=== PATIENT | female | born 1955 | race African-American/Black ===

== ENCOUNTER 2017-09-12 08:00 | Outpatient (CLI) | payer SELFPAY | END 2017-09-12 08:01 | disposition home or self-care (01) | LOC: BICMAMMO 08:00 | PROVIDERS: ATTEND Physician Assistant | DX: Z12.31 Encounter for screening mammogram for malignant neoplasm of breast (principal) | CPT/HCPCS: 77063; 77067; G0202 ==

== ENCOUNTER 2018-07-23 10:12 | Outpatient (CLI) | payer MEDICARE, MEDICAID ==
[2018-07-23 11:57] LABS: #Basophils 0.1 thou/uL (0.0-0.2); #Eosinphils 0.1 thou/uL (0.0-0.7); #Lymphocytes 2.8 thou/uL (1.20-3.40); #Monocytes 0.4 thou/uL (0.11-0.59); #Neutrophils 3.3 thou/uL (1.40-6.50); %Basophils 1.5 % (0.0-1.0); %Eosinophils 1.5 % (0.0-10.0); %Lymphocytes 41.6 % (21.0-51.0); %Neutrophils 49.5 % (42.0-75.0); Hemoglobin 13.9 g/dL (12.0-16.0); Mean Corpuscular HGB CONC 32.4 g/dL (32.0-36.0); Mean Corpuscular Hemoglobin 26.8 pg (27.0-31.0); Mean Corpuscular Volume 82.9 fL (78.0-98.0); Mean Platelet Volume 8.8 fL (7.4-10.4); Platelet Count 309 thou/uL (130-400); RBC Distribution Width 12.6 % (11.5-14.5); Red Blood Cell (RBC) Count 5.19 mill/uL (4.20-5.40); White Blood Cell (WBC) Count 6.7 thou/uL (4.8-10.8)
--- NOTE | 2018-07-23 12:01 | RAD ---
CHEST TWO VIEWS: HISTORY: Chest pain. COMPARISON: None. FINDINGS: The lungs are clear. No pneumothorax or effusion. The cardiac silhouette and mediastinal contour ar e within normal limits. Multiple midline sternotomy wires. IMPRESSION: No acute intrathoracic abnormality. POS: [facility]
[2018-07-23 12:16] LABS: Bilirubin Negative (Negative); Blood, Urine Negative (Negative); Clarity CLEAR (Clear); Glucose, Urine (Dipstick) >=1000 mg/dL (Negative); Leukocyte Negative (Negative); Nitrite Negative (Negative); Protein, Urine (Dipstick) Negative (Neg-Trace); Specific Gravity, Urine 1.039 (1.002-1.036); Urobilinogen 0.2 mg/dL (0.2-1.0)
[2018-07-23 12:18] LABS: Bacteria/HPF Rare-Few HPF (None Seen); Hyaline Casts/LPF 0-3 HYALINE CAST LPF (0-3 Hyaline); Pathc Cast-AUWi Flag 0.29 (0-2.49); Squamous Epithelial 0-3 HPF (0-3); WBC/HPF 0-3 HPF (0-3)
[2018-07-23 12:53] LABS: Anion Gap 11 mmol/L (10-20); BUN (Urea Nitrogen) 15 mg/dL (9.8-20.1); Calc. Creatinine Clearance 0 mL/min (70-130); Calcium 10.2 mg/dL (7.8-10.44); Carbon Dioxide 28 mmol/L (23-31); Chloride 101 mmol/L (98-107); Estimated GFR-MDRD 90; Glucose 258 mg/dL (80-115); Potassium 3.9 mmol/L (3.5-5.1); Sodium 136 mmol/L (136-145)
== END 2018-07-23 10:13 | disposition home or self-care (01) ==
LOC: LABBT 10:12
PROVIDERS: ATTEND Orthopaedic Surgery Hand Surgery
DX: Z01.818 Encounter for other preprocedural examination (principal); M67.40 Ganglion, unspecified site
CPT/HCPCS: 71046; 80048; 81001; 85025; 93005; 93010

== ENCOUNTER 2018-08-05 05:34 | Day surgery (SDC) | payer MEDICARE, MEDICAID ==
[2018-07-23 10:19] VITALS: BMI 25.0
[2018-08-05] MEDS ORDERED: CEFAZOLIN 2 GM/50 ML BAG ONE (06:16)
[2018-08-05] MEDS ORDERED: Famotidine/PF 20 mg/2ml Vial ONE (06:41)
[2018-08-05] MEDS ORDERED: Fentanyl 100 MCG/2 ML VIAL ONE (06:41)
[2018-08-05] MEDS ORDERED: Betamet Acet/Betamet Na Ph 30 MG/5 ML VIAL ONE (06:45)
[2018-08-05] MEDS ORDERED: Bacitracin Zinc Ointment 30 gm TUBE ONE (06:45)
[2018-08-05] MEDS ORDERED: Bupivacaine PF 0.5% 30 ML VIAL ONE (06:45)
[2018-08-05] MEDS ORDERED: Propofol 1,000 MG/100 ML VIAL IV ONE (07:04)
[2018-08-05] MEDS ORDERED: Midazolam HCl 2 mg/2 ml Vial ONE (07:46)
[2018-08-05] MEDS ORDERED: Lidocaine 1% PF 5 ML VIAL ONE (13:59)
[2018-08-05] MEDS ORDERED: Ondansetron PF 4 MG/2 ML Vial ONE (13:59)
[2018-08-05] MEDS ORDERED: PROPOFOL 200 MG/20 ML VIAL ONE (13:59)
[2018-08-05] MEDS ORDERED: Ketorolac Tromethamine 30 MG/ML VIAL ONE (13:59)
--- NOTE | 2018-08-06 13:51 | OP ---
DATE OF PROCEDURE: 08/05/2018 PREOPERATIVE DIAGNOSIS: Left wrist radial carpal palmar ganglion. POSTOPERATIVE DIAGNOSIS: Left wrist radial carpal palmar ganglion. FINDINGS: A 3.5 cm ganglion with 4 mm stalk scaphoradial joint, radial artery, radial to the mass, b ut grossly adherent to the wall. PROCEDURES PERFORMED: 1. Arthrotomy with palmar ganglion cyst resection. 2. Ligation of bleeder, radial artery branch, left wrist. SPECIMEN SENT: Left wrist ganglion . TOURNIQUET TIME: 18 minutes. INJECTIONS: Steroid injection to the joint, betamethasone 3 mL. INDICATION: The patient with a mass, jorgensen over radial artery and felt that aspiration would be too dangerous to arterial flow, so we elected to go to surgery after conservative treatment had failed. DESCRIPTION OF PROCEDURE: After successful general LMA technique, the limb was prepped and draped. Time out was done appropriately. We then outlined a zigzag incision, staying well radial of the flex or carpi radialis to avoid the palmar cutaneous branch and also centralize over the mass. With limb exsanguinated, tourniquet inflated to 250 mmHg pressure. We had to zigzag incision after given 20 mL of 0.5% Marcaine along the incision line. The cyst was very thin-walled and once we dissected, some of the portion against the wall, away from the wall, freeing it off the flexor carpi radialis tendon and the radial artery proximally, we then had to under magnification free the radial artery from the cyst. Often taking care not to violate wall, but in the hand, the wall was violated and had to hold this with a mini clamp. We then found the stalk, which was almost 4 mm in width coming from the rad ioscaphoid joint, into the joint cavity at the distal radius portion and followed it into the joint w here it was initiated more than likely. The ganglion was now gone, respective joint, small amount of synovium was removed. We then had Mya tone placed 2 mL of the joint, release of tourniquet and we ligated arterial bleeder that was a branc h of radial artery. The patient then had the hemostasis obtained, the wound closed after placing 2 m L of Celestone into the cavity, centrally. The incision was closed with a running 4-0 Monocryl in an interrupted 4-0 nylon.
== END 2018-08-05 10:00 | disposition home or self-care (01) ==
LOC: SDC 05:34
PROVIDERS: ATTEND Orthopaedic Surgery Hand Surgery
PROC: 0LB60ZZ Excision of Left Lower Arm and Wrist Tendon, Open Approach (ICD-10-PCS; principal; 2018-08-05)
DX: M67.432 Ganglion, left wrist (principal); I25.2 Old myocardial infarction; Z79.4 Long term (current) use of insulin; Z79.82 Long term (current) use of aspirin; Z79.899 Other long term (current) drug therapy; Z95.1 Presence of aortocoronary bypass graft
CPT/HCPCS: 36416; 88304; J0131; J0702; J1885; J2001; J2250; J2405; J2704; J3010; S0020; S0028

== ENCOUNTER 2018-08-20 07:58 | Outpatient (CLI) | payer MEDICARE, MEDICAID | END 2018-08-20 07:59 | disposition home or self-care (01) | LOC: BICMAMMO 07:58 | PROVIDERS: ATTEND Physician Assistant | DX: N64.4 Mastodynia (principal) | CPT/HCPCS: 77066; G0279 ==

== ENCOUNTER 2018-09-10 09:48 | Outpatient (CLI) | payer MEDICARE, MEDICAID ==
[2018-09-10 11:05] LABS: Estimated GFR-MDRD - POC Greater than 90
--- NOTE | 2018-09-10 12:52 | MRI ---
MRI ABDOMEN WITH AND WITHOUT CONTRAST: HISTORY: Hypodensity seen in the pancreas on prior CT. Followup to determine stability. COMPARISON: CT abdomen/pelvis from 02/06/2018. TECHNIQUE: Multiplanar, multisequence MR images were obtained of the abdomen with and without IV contrast. FINDINGS: There is a stable, well circumscribed, 8 to 9 mm, nonenhancing focus of high T2 signal on the insular portion of the pancreas. This is not obviously communicating with the pancreatic duct. This may re present a small cyst. No enhancement is seen surrounding this abnormality to suggest a cystic pancre atic neoplasm. The common bile duct is normal in caliber. The liver, gallbladder, kidneys, adrenal glands, and spleen are unremarkable. No abdominal adenopath y is seen. No marrow signal abnormality is present. IMPRESSION: Stable cyst in the insular portion of the pancreas. POS: EB
== END 2018-09-10 09:49 | disposition home or self-care (01) ==
LOC: MRI 09:48
PROVIDERS: ATTEND Physician Assistant
DX: Z09 Encounter for follow-up examination after completed treatment for conditions other than malignant neoplasm (principal); K86.2 Cyst of pancreas; Z87.19 Personal history of other diseases of the digestive system
CPT/HCPCS: 74183; 82565

== ENCOUNTER 2018-09-25 05:32 | Day surgery (SDC) | payer MEDICARE, MEDICAID ==
[2018-09-25 06:46] LABS: #Basophils 0.1 thou/uL (0.0-0.2); #Eosinphils 0.2 thou/uL (0.0-0.7); #Lymphocytes 3.3 thou/uL (1.20-3.40); #Monocytes 0.5 thou/uL (0.11-0.59); #Neutrophils 3.3 thou/uL (1.40-6.50); %Basophils 0.8 % (0.0-1.0); %Eosinophils 2.1 % (0.0-10.0); %Lymphocytes 45.4 % (21.0-51.0); %Monocytes 6.7 % (0.0-10.0); Hemoglobin 13.2 g/dL (12.0-16.0); Mean Corpuscular HGB CONC 32.7 g/dL (32.0-36.0); Mean Corpuscular Hemoglobin 26.9 pg (27.0-31.0); Mean Corpuscular Volume 82.1 fL (78.0-98.0); Mean Platelet Volume 8.8 fL (7.4-10.4); Platelet Count 303 thou/uL (130-400); RBC Distribution Width 13.1 % (11.5-14.5); Red Blood Cell (RBC) Count 4.93 mill/uL (4.20-5.40); White Blood Cell (WBC) Count 7.2 thou/uL (4.8-10.8)
[2018-09-25 06:53] LABS: INR-International Normal Ratio 0.9; PTT 27.6 SEC (22.9-36.1); Prothrombin Time 12.5 SEC (12.0-14.7)
[2018-09-25 07:00] LABS: Anion Gap 15 mmol/L (10-20); BUN (Urea Nitrogen) 19 mg/dL (9.8-20.1); Calc. Creatinine Clearance 0 mL/min (70-130); Carbon Dioxide 25 mmol/L (23-31); Chloride 103 mmol/L (98-107); Estimated GFR-MDRD 71; Potassium 3.8 mmol/L (3.5-5.1); Sodium 139 mmol/L (136-145)
[2018-09-25 07:01] LABS: ALT (SGPT) 20 U/L (8-55); AST (SGOT) 14 U/L (5-34); Albumin 4.3 g/dL (3.4-4.8); Alkaline Phosphatase 131 U/L (40-150); Bilirubin, Total 0.4 mg/dL (0.2-1.2); Calcium 10.8 mg/dL (7.8-10.44); Cardiac Risk 4.8 (Less than 4.5); Cholesterol 220 mg/dl (< 200 Desired); Globulin 3.6 g/dL (2.4-3.5); Glucose 272 mg/dL (80-115); HDL Cholesterol 46 mg/dL (>60 Neg Risk); LDL Cholesterol, Calculated 124 mg/dL; Protein, Total 7.9 g/dL (6.0-8.3); Triglycerides 250 mg/dL (Less than 150)
[2018-09-25] MEDS ORDERED: Fentanyl 100 MCG/2 ML VIAL ONE (09:09)
[2018-09-25] MEDS ORDERED: Midazolam HCl 2 mg/2 ml Vial ONE (09:09)
[2018-09-25] MEDS ORDERED: Acetaminophen/Codeine 30-300mg Tablet ONE (11:46)
== END 2018-09-25 12:40 | disposition home or self-care (01) ==
LOC: CCL 05:32
PROVIDERS: ATTEND Internal Medicine Cardiovascular Disease
PROC: B213YZZ Fluoroscopy of Multiple Coronary Artery Bypass Grafts using Other Contrast (ICD-10-PCS; principal; 2018-09-25)
PROC: B211YZZ Fluoroscopy of Multiple Coronary Arteries using Other Contrast (ICD-10-PCS; 2018-09-25)
DX: I25.10 Atherosclerotic heart disease of native coronary artery without angina pectoris (principal); I25.2 Old myocardial infarction; Z95.1 Presence of aortocoronary bypass graft; E78.00 Pure hypercholesterolemia, unspecified; I10 Essential (primary) hypertension; E11.9 Type 2 diabetes mellitus without complications
CPT/HCPCS: 80053; 80061; 85025; 85610; 85730; 93459; 99152; 99153; C1769; J1644; J2250; J3010

== ENCOUNTER 2019-03-25 14:04 | Outpatient (CLI) | payer MEDICARE, MEDICAID ==
[2019-03-25 15:12] LABS: #Basophils 0.1 thou/uL (0.0-0.2); #Eosinphils 0.1 thou/uL (0.0-0.7); #Monocytes 0.5 thou/uL (0.11-0.59); #Neutrophils 2.7 thou/uL (1.40-6.50); %Basophils 1.4 % (0.0-1.0); %Eosinophils 1.7 % (0.0-10.0); %Lymphocytes 46.7 % (21.0-51.0); %Monocytes 7.2 % (0.0-10.0); Hemoglobin 13.4 g/dL (12.0-16.0); Mean Corpuscular HGB CONC 32.9 g/dL (32.0-36.0); Mean Corpuscular Hemoglobin 27.5 pg (27.0-31.0); Mean Corpuscular Volume 83.6 fL (78.0-98.0); Platelet Count 287 thou/uL (130-400); Red Blood Cell (RBC) Count 4.86 mill/uL (4.20-5.40); White Blood Cell (WBC) Count 6.3 thou/uL (4.8-10.8)
[2019-03-25 15:34] LABS: Anion Gap 13 mmol/L (10-20); BUN (Urea Nitrogen) 14 mg/dL (9.8-20.1); Calc. Creatinine Clearance 0 mL/min (70-130); Calcium 10.5 mg/dL (7.8-10.44); Carbon Dioxide 25 mmol/L (23-31); Chloride 103 mmol/L (98-107); Estimated GFR-MDRD 87; Glucose 289 mg/dL (80-115); Potassium 4.7 mmol/L (3.5-5.1); Sodium 136 mmol/L (136-145)
== END 2019-03-25 14:05 | disposition home or self-care (01) ==
LOC: LABBT 14:04
PROVIDERS: ATTEND Orthopaedic Surgery Hand Surgery
DX: Z01.818 Encounter for other preprocedural examination (principal); M65.4 Radial styloid tenosynovitis [de Quervain]
CPT/HCPCS: 80048; 85025; 93005; 93010

== ENCOUNTER 2019-03-27 05:49 | Day surgery (SDC) | payer MEDICARE, MEDICAID ==
[2019-03-25 14:20] VITALS: BMI 25.7
[2019-03-27] MEDS ORDERED: Betamet Acet/Betamet Na Ph 30 MG/5 ML VIAL ONE (06:28)
[2019-03-27] MEDS ORDERED: Bupivacaine PF 0.5% 30 ML VIAL ONE (06:28)
[2019-03-27] MEDS ORDERED: Insulin Regular 300 UNITS/3 ML VIAL ONE (07:05)
[2019-03-27] MEDS ORDERED: Fentanyl 100 MCG/2 ML VIAL ONE (07:27)
[2019-03-27] MEDS ORDERED: Bacitracin Zinc Ointment 30 gm TUBE ONE (07:53)
[2019-03-27] MEDS ORDERED: Ketorolac Tromethamine 30 MG/ML VIAL ONE (08:34)
--- NOTE | 2019-03-27 14:45 | OP ---
DATE OF PROCEDURE: 03/27/2019 PREOPERATIVE DIAGNOSES: 1. Left de Quervain's. 2. Insulin-dependent diabetes mellitus. POSTOPERATIVE DIAGNOSES: 1. Left de Quervain's. 2. Insulin-dependent diabetes mellitus. 3. Extensor tenosynovitis. PROCEDURES PERFORMED: 1. De Quervain's first dorsal compartment release, left. 2. Left extensor tenosynovectomy first dorsal compartment, all within one compartment. SPECIMENS: None to the lab, but removed tenosynovium. ESTIMATED BLOOD LOSS: 10 mL. TOURNIQUET TIME: 10 minutes. DESCRIPTION OF PROCEDURE: After successful general LMA technique, the limb was prepped and draped. We gave injection of 10 mL of 0.5% Marcaine. An outline zigzag incision was centered over the dorsal compartment and the radial styloid. We then exsanguinated the limb, inflated the tourniquet to 250 mmHg pressure at the end of the incision. We carried through skin and subcutaneous tissue until we identified superficial radial nerve branches. We dissected them free in atraumatic fashion from the center of the field, visualized a very thick tenosynovium on both sides of the extensor retinaculum. We released the retinaculum under direct visualization with a knife leaving a palmar 50% to prevent subluxation. I then elevated the tendons, found the EPB using a separate compartment and released it. There was a very thick tenosynovium for approximately 1 cm and the thin one was still inflamed. We did a radical extensor tenosynovectomy to remove this protecting all nervous structures. The patient then had tourniquet deflated. Hemostasis was obtained. An incision was closed with interrupted 4-0 nylon in simple pattern. Bulky dressing was applied. She went to the operating room without complication. Job ID: [id number]
== END 2019-03-27 09:40 | disposition home or self-care (01) ==
LOC: SDC 05:49
PROVIDERS: ATTEND Orthopaedic Surgery Hand Surgery
PROC: 0LB60ZZ Excision of Left Lower Arm and Wrist Tendon, Open Approach (ICD-10-PCS; principal; 2019-03-27)
DX: M65.4 Radial styloid tenosynovitis [de Quervain] (principal); M67.40 Ganglion, unspecified site; I10 Essential (primary) hypertension; I25.10 Atherosclerotic heart disease of native coronary artery without angina pectoris; E11.9 Type 2 diabetes mellitus without complications; F17.200 Nicotine dependence, unspecified, uncomplicated; I25.2 Old myocardial infarction; Z79.4 Long term (current) use of insulin; Z79.82 Long term (current) use of aspirin; Z79.899 Other long term (current) drug therapy
CPT/HCPCS: 36416; J0690; J0702; J1815; J1885; J3010; S0020

== ENCOUNTER 2019-08-21 09:39 | Outpatient (CLI) | payer MEDICARE, MEDICAID ==
--- NOTE | 2019-08-21 10:49 | MMO ---
Bilateral MAMMO Bilat Diag [facility]. CLINICAL HISTORY: Patient is 64 years old and is seen for diagnostic exam. The patient has no family history of breast cancer. The patient has no personal history of cancer. VIEWS: The views performed were: bilateral mediolateral oblique with tomosynthesis; bilateral craniocaudal with tomosynthesis; bilateral mediolateral with tomosynthesis; right mediolateral oblique spot compression magnification; and right craniocaudal spot compression magnification. FILMS COMPARED: The present examination has been compared to prior imaging studies performed at [facility] on 07/25/2016, 09/12/2017, 08/20/2018 and 08/21/2019. This study has been interpreted with the assistance of computer-aided detection. MAMMOGRAM FINDINGS: There are scattered fibroglandular densities. Finding 1: No suspicious mammographic abnormality seen in the palpable region of interest. No sonographic abnormality is seen in the region of palpable abnormality. Finding 2: There are fine pleomorphic calcifications with grouped or clustered distribution seen in the posterior region of the right breast at 10 o'clock. There is an increased number of calcifications. The findings and recommendations were discussed with the patient prior to her leaving the Center. Finding 3: There are fine pleomorphic calcifications seen in the middle region of the right breast at 12 o'clock. There is an increased number of calcifications. In the left breast, there are no suspicious masses, calcifications or areas of architectural distortion. IMPRESSION: FINDING 1: FINDING IN THE RIGHT BREAST IS BENIGN. FINDING 2: FINE PLEOMORPHIC CALCIFICATIONS IN THE POSTERIOR REGION OF THE RIGHT BREAST AT 10 O'CLOCK ARE SUSPICIOUS. A STEREOTACTIC BREAST BIOPSY IS RECOMMENDED. PATIENT IS CURRENTLY ON BLOOD THINNERS FOR PRIOR CORONARY ARTERY DISEASE AND PERIPHERAL VASCULAR DISEASE. SHE WILL NEED TO BE OFF THESE FOR THE STEREOTACTIC BIOPSY. PATIENT COUNSELLED ON THE FINDINGS PRIOR TO LEAVING THE BREAST CENTER. FINDING 3: FINE PLEOMORPHIC CALCIFICATIONS IN THE MIDDLE REGION OF THE RIGHT BREAST AT 12 O'CLOCK ARE SUSPICIOUS. A STEREOTACTIC BREAST BIOPSY IS RECOMMENDED. THE RESULTS OF THIS EXAM WERE SENT TO THE PATIENT. ACR BI-RADS Category 4 - Suspicious abnormality - biopsy should be considered MAMMOGRAPHY NOTE: 1. A negative mammogram report should not delay a biopsy if a dominant of clinically suspicious mass is present. 2. Approximately 10% to 15% of breast cancers are not detected by mammography. 3. Adenosis and dense breasts may obscure an underlying neoplasm. Reported by: REYES GAXIOLA MD Electonically Signed: [id number]
--- NOTE | 2019-08-21 11:48 | ULT ---
RIGHT BREAST DIAGNOSTIC ULTRASOUND: Date: 08/21/19 INDICATION: Palpable abnormality right breast 12 o'clock position. COMPARISON: Mammographic evaluation of 08/21/19. FINDINGS: No suspicious sonographic abnormality is seen within the palpable region of interest. IMPRESSION: No suspicious sonographic abnormality within the palpable region of interest. POS: OFF
== END 2019-08-21 09:40 | disposition home or self-care (01) ==
LOC: BICMAMMO 09:39
PROVIDERS: ATTEND Physician Assistant
DX: N64.4 Mastodynia (principal)
CPT/HCPCS: 76642; 77066; G0279

== ENCOUNTER 2020-03-09 10:09 | Outpatient (CLI) | payer MEDICARE, MEDICAID ==
--- NOTE | 2020-03-09 14:38 | MRI ---
EXAM: RIGHT SHOULDER MRI WITHOUT IV CONTRAST: 03/09/20 HISTORY: Acute pain right shoulder. FINDINGS: There is a prominent amount of fluid within the subacromial subdeltoid bursa. AC joint arthrosis nani nges are noted with prominent downsloping of the lateral acromion. There is a full thickness essentia lly nonretracted tear of the conjoint tendon with some associated delamination extending into the inf raspinatus tendon myotendinous region. Supraspinatus tendinopathy. Rotator cuff muscles are within n ormal limits of signal and volume. The visualized labrum appears unremarkable. Subscapularis tendon a nd biceps tendons appear intact. IMPRESSION: Complete full thickness essentially nonretracted tear of the conjoint tendon. Large amount of fluid w ithin the subacromial subdeltoid bursa. Downsloping of the lateral acromion. Other findings as above. POS: [facility]
== END 2020-03-09 10:10 | disposition home or self-care (01) ==
LOC: BICMRI 10:09
PROVIDERS: ATTEND Orthopaedic Surgery
DX: M25.511 Pain in right shoulder (principal); M75.31 Calcific tendinitis of right shoulder; S46.911A Strain of unspecified muscle, fascia and tendon at shoulder and upper arm level, right arm, initial encounter; M19.011 Primary osteoarthritis, right shoulder

== ENCOUNTER 2020-04-11 05:55 | Outpatient (CLI) | payer MEDICARE, MEDICAID, OTHER ==
[2020-04-11 16:17] LABS: INR-International Normal Ratio 0.9; Prothrombin Time 12.4 sec (12.0-14.7)
[2020-04-11 16:19] LABS: #Eosinphils 0.1 thou/uL (0.0-0.7); #Lymphocytes 3.1 thou/uL (1.20-3.40); #Monocytes 0.4 thou/uL (0.11-0.59); #Neutrophils 3.1 thou/uL (1.40-6.50); %Basophils 0.7 % (0.0-1.0); %Eosinophils 1.2 % (0.0-10.0); %Lymphocytes 45.9 % (21.0-51.0); %Monocytes 6.1 % (0.0-10.0); %Neutrophils 46.1 % (42.0-75.0); Hemoglobin 13.5 g/dL (12.0-16.0); Mean Corpuscular HGB CONC 32.3 g/dL (32.0-36.0); Mean Corpuscular Hemoglobin 27.2 pg (27.0-31.0); Mean Corpuscular Volume 84.2 fL (78.0-98.0); Mean Platelet Volume 9.6 fL (7.4-10.4); Platelet Count 238 thou/uL (130-400); RBC Distribution Width 13.2 % (11.5-14.5); Red Blood Cell (RBC) Count 4.97 mill/uL (4.20-5.40); White Blood Cell (WBC) Count 6.7 thou/uL (4.8-10.8)
[2020-04-11 16:27] LABS: BHCG - Serum Negative (NEGATIVE); Pregs Control Background? CLEAR/WHITE (CLR/WHITE); Pregs Control Bar Appear? YES (CONTROL BAR)
[2020-04-11 16:30] LABS: Anion Gap 13 mmol/L (10-20); BUN (Urea Nitrogen) 12 mg/dL (9.8-20.1); Calc. Creatinine Clearance 0 mL/min (70-130); Calcium 10.4 mg/dL (7.8-10.44); Carbon Dioxide 28 mmol/L (23-31); Chloride 99 mmol/L (98-107); Estimated GFR-MDRD 67; Glucose 428 mg/dL (80-115); Potassium 4.7 mmol/L (3.5-5.1); Sodium 135 mmol/L (136-145)
[2020-04-12 14:01] LABS: SARS-CoV-2 MS2 Positive; SARS-CoV-2 N Gene Negative; SARS-CoV-2 S Gene Negative; SARS-CoV-2 orf1ab Negative
== END 2020-04-11 05:56 | disposition home or self-care (01) ==
LOC: LABBT 05:55
PROVIDERS: ATTEND Orthopaedic Surgery
DX: Z01.812 Encounter for preprocedural laboratory examination (principal); Z11.59 Encounter for screening for other viral diseases; S46.011A Strain of muscle(s) and tendon(s) of the rotator cuff of right shoulder, initial encounter; M75.31 Calcific tendinitis of right shoulder
CPT/HCPCS: 80048; 84703; 85025; 85610; U0003; 87635

== ENCOUNTER 2020-08-29 09:44 | Outpatient (CLI) | payer MEDICARE, MEDICAID ==
--- NOTE | 2020-08-29 10:18 | MMO ---
Bilateral MAMMO Bilat Screen [facility]. CLINICAL HISTORY: Patient is 65 years old and is seen for screening. The patient has no family history of breast cancer. The patient has no personal history of cancer. VIEWS: The views performed were: bilateral craniocaudal with tomosynthesis and bilateral mediolateral oblique with tomosynthesis. FILMS COMPARED: The present examination has been compared to prior imaging studies performed at [facility] on 09/12/2017, 08/20/2018 and 08/21/2019. This study has been interpreted with the assistance of computer-aided detection. MAMMOGRAM FINDINGS: There are scattered fibroglandular densities. There are benign appearing calcifications seen in both breasts. There are no suspicious masses, suspicious calcifications, or new areas of architectural distortion. IMPRESSION: THERE IS NO MAMMOGRAPHIC EVIDENCE OF MALIGNANCY. A ROUTINE FOLLOW-UP MAMMOGRAM IN 1 YEAR IS RECOMMENDED. THE RESULTS OF THIS EXAM WERE SENT TO THE PATIENT. ACR BI-RADS Category 2 - Benign finding MAMMOGRAPHY NOTE: 1. A negative mammogram report should not delay a biopsy if a dominant of clinically suspicious mass is present. 2. Approximately 10% to 15% of breast cancers are not detected by mammography. 3. Adenosis and dense breasts may obscure an underlying neoplasm. Reported by: GAURI GILLILAND MD Electonically Signed: [id number]
== END 2020-08-29 09:45 | disposition home or self-care (01) ==
LOC: BICMAMMO 09:44
PROVIDERS: ATTEND Physician Assistant
DX: Z12.31 Encounter for screening mammogram for malignant neoplasm of breast (principal)
CPT/HCPCS: 77063; 77067

== ENCOUNTER 2021-08-31 08:56 | Outpatient (CLI) | payer MEDICARE, MEDICAID | END 2021-08-31 08:57 | disposition home or self-care (01) | LOC: BICMAMMO 08:56 | PROVIDERS: ATTEND Physician Assistant | DX: Z12.31 Encounter for screening mammogram for malignant neoplasm of breast (principal); Z85.3 Personal history of malignant neoplasm of breast | CPT/HCPCS: 77063; 77067 ==

== ENCOUNTER 2022-08-20 09:44 | Outpatient (CLI) | payer MEDICARE, MEDICAID | END 2022-08-20 09:45 | disposition home or self-care (01) | LOC: BICMAMMO 09:44 | PROVIDERS: ATTEND Physician Assistant | DX: N64.4 Mastodynia (principal) | CPT/HCPCS: 76642; 77066; G0279 ==

== ENCOUNTER 2023-07-24 11:27 | Outpatient (CLI) | payer OTHER, MEDICAID | END 2023-07-24 11:28 | disposition home or self-care (01) | PROVIDERS: ATTEND Psychiatry & Neurology Neurology | DX: I63.9 Cerebral infarction, unspecified (principal) | CPT/HCPCS: 93225; 93226 ==